=== PATIENT | female | born 1935 | race Caucasian/White ===

== ENCOUNTER → 2016-08-17 08:33 | Outpatient (CLI) | payer MEDICARE, OTHER ==
[2010-01-10 09:37] VITALS: BMI 16.1
== END | disposition home or self-care (01) ==
LOC: D.CT 08:33
DX: R10.9 Unspecified abdominal pain (principal); R93.8 Abnormal findings on diagnostic imaging of other specified body structures

== ENCOUNTER → 2018-02-17 15:04 | Outpatient (CLI) | payer MEDICARE, OTHER ==
[2010-01-10 09:37] VITALS: BMI 16.1
[2018-02-17 16:20] LABS: T4 THYROXIN - FREE 0.6 ng/dL (0.76-1.46); THYROID STIMULATING HORMONE 11.32 uIU/mL (0.36-3.74)
== END | disposition home or self-care (01) ==
LOC: D.LABREF 15:04
PROVIDERS: Internal Medicine Cardiovascular Disease
DX: E03.9 Hypothyroidism, unspecified (principal)

== ENCOUNTER → 2019-11-15 10:38 | Outpatient (CLI) | payer MEDICARE, OTHER ==
[2010-01-10 09:37] VITALS: BMI 16.1
== END | disposition home or self-care (01) ==
LOC: D.HCCECHO 09-12 13:00
PROVIDERS: ATTEND Internal Medicine Cardiovascular Disease
DX: I34.0 Nonrheumatic mitral (valve) insufficiency (principal)

== ENCOUNTER → 2019-11-30 09:56 | Outpatient (CLI) | payer MEDICARE, OTHER ==
[2010-01-10 09:37] VITALS: BMI 16.1
== END | disposition home or self-care (01) ==
LOC: D.LAB 09:56
PROVIDERS: ATTEND Internal Medicine Pulmonary Disease
DX: Z11.59 Encounter for screening for other viral diseases (principal)